=== PATIENT | male | born 1980 | race Caucasian/White ===

== ENCOUNTER 2023-07-05 13:51 | Outpatient (AMB) | payer OTHER, SELFPAY ==
--- NOTE | 2023-07-05 14:03 | A.OFFPC_ITS ---
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 Intake Note: Pt is here today as a New Patient to est care Allergies acetaminophen [From Tylenol] Adverse Reaction (Verified 07/05/23 14:17) vomting and nausea bupropion [From Wellbutrin] Adverse Reaction (Verified 07/05/23 14:17) nausea and itchy Medication List - Last Reconciled 07/05/23 by EMELIA Briggs amitriptyline 25 mg PO QHS amitriptyline 10 mg PO BEDTIME naltrexone 50 mg PO DAILY Tobacco use date assessed: 07/05/23 Dental Screening Dental Screen Date: 07/05/23 Did you have a dental visit in the last 12 months?: No Was dental information given to patient?: Patient has dentist HPI HPI Comments History of Present Illness Details Patient is a 43-year-old male in today to establish care. He has a past medical history significant for anxiety, insomnia, ETOH abuse, and hypertension. He does not want the influenza or COVID booster. He will send his medical records from his past provider. Patient has a chief complaint of right toe pain of his greater right toe. The pain has been present for 6 months but has gotten progressively worse over that time. He denies having any trauma to the area. He has used [id number] Motrin with some affect. Denies any tingling or numbness. Denies having pale or cold feet. Patient's blood pressure today is elevated at 144/92. He states that at his previous provider his blood pressure used to be elevated at 180 over 100, and that he has reduced his blood pressure by diet and weight loss. He measures his blood pressure at home frequently and states that he feels like he needs medication to help take him closer to the target goal of 120/80. Patient denies tingling, numbness, headache, chest pain, shortness a breath. [facility] Medical History (Updated 07/05/23 @ 15:04 by EMELIA Briggs) H/O ETOH abuse Insomnia Anxiety Family History Maternal Grandmother Type 2 diabetes mellitus Social History Housing: House Alcohol intake: current Comment: 1 to 2 beers per day Patient Tobacco Use Status: Current everyday Tobacco user Cigarettes Per Day: 10 Years Smoked: 10 e-Cigarette/Vaping Use: Currently Using Substance Use Type: Marijuana service: No Current occupational status: employed Cognitive needs: No Hearing needs: No Vision needs: No Questionnaire PHQ-9 Over the last 2 weeks, how often have you been bothered by any of the following problems? 1. Little interest or pleasure in doing things: not at all 2. Feeling down, depressed, or hopeless: not at all 3. Trouble falling or staying asleep, or sleeping too much: not at all 4. Feeling tired or having little energy: not at all 5. Poor appetite or overeating: not at all 6. Feeling bad about yourself - or that you are a failure or have let yourself or your family down: not at all 7. Trouble concentrating on things, such as reading the newspaper or watching television: not at all 8. Moving or speaking so slowly that other people could have noticed. Or the opposite - being so fidgety or restless that you have been moving around a lot more than usual: not at all 9. Thoughts that you would be better off or of hurting yourself in some way: not at all Total score: 0 Depression Screening Interpretation: Negative Depression Screening Done: Yes 89826 - PHQ-9 Billing: Yes Source: Developed by Drs. Harsha Wilder, Arianna Verde, Anibal William and colleagues, with an educational jacki from [employer]. Thrive Questionnaire Date Thrive assessed: 07/05/23 I am a: Patient What is your living situation today?: I have a steady place to live Within the past 12 months, did the food you bought not last and you didn't have the money to get more?: Never true Within the past 12 months, did you worry whether your food would run out before you got money to buy more?: Never true Do you have trouble paying for medicines?: No Do you have trouble getting transportation to medical appointments?: No Do you have trouble paying your heating and electricity bill?: No Do you have trouble taking care of your child, family member or friend?: No Do you have trouble with day-to-day activities such as bathing, preparing meals, shopping, managing finances, etc.?: No Are you currently unemployed and looking for a job?: No Are you interested in more education?: No THRIVE Score: 0 AUDIT C Alcohol Use Questionnaire (AUDIT-C) 1. How often do you have a drink containing alcohol?: 2-3 times a week 2. How many drinks containing alcohol do you have on a typical day when you are drinking?: 1 or 2 3. How often do you have six or more drinks on one occasion?: Never Total Score: 3 CANDICE-7 AMB Questionnaire CANDICE-7 Date CANDICE - 7 assessed: 07/05/23 Feeling nervous, anxious, or on edge: 0 = Not at all Not being able to stop or control worryin = Not at all Worrying too much about different things: 0 = Not at all Trouble relaxin = Not at all Being so restless that it is hard to sit still: 0 = Not at all Becoming easily annoyed or irritable: 0 = Not at all Feeling afraid as if something awful might happen: 0 = Not at all Total CANDICE-7 score (0-4 normal; 5-9 mild; 10-14 moderate; 15-21 severe): 0 Source: Developed by Drs. Harsha Wilder, Arianna Verde, Anibal William and colleagues, with an educational jacki from [employer]. CANDICE-7 Assessment Billing CANDICE-7 Assessment Tool: CANDICE-7 Assessment 39673 Review of Systems Const Details: Constitutional : No Weight loss, No Fever, No Chills, No Fatigue, No Malaise ENT/Mouth : No sore throat, No Rhinorrhea, No ear fullness. Eyes: No Eye Pain, No Swelling, No Redness, No change in vision. Cardiovascular : No Chest Pain, No SOB, No Dyspnea on Exertion, No Orthopnea, No Edema, No Palpitations Respiratory : No Cough, No Sputum, No Wheezing Gastrointestinal : No Nausea, No Vomiting, No Diarrhea, No Constipation, No abdominal Pain, No Hematochezia, No Melena Genitourinary : No Dysuria, No Urinary Frequency, No Hematuria, Musculoskeletal :Admits right great toe pain Skin : No Skin Lesions, No rash Neuro : No Weakness, No Numbness, No Dizziness, No Headache Psych : No Anxiety/Panic, No Depression Heme/Lymph: No Bruising, No Bleeding,No Lymphadenopathy Endocrine : No Polyuria, No Polydipsia All other systems reviewed and are negative Physical exam (Primary Care) Vital Signs: Last Vital Signs Pulse 100 07/05/23 14:05 BP 144/92 H 07/05/23 14:05 Pulse Ox 97 07/05/23 14:05 Oxygen Delivery Method Room Air 07/05/23 14:05 Care Plan Goal for BP management: Patient will be placed on 5 mg lisinopril and instructed to take blood pressure measurements at home Next steps: Follow-up in 1 month for blood pressure. BMI result Body Mass Index 27.4 Depression Screening Interpretation: Negative Const Other: Appearance: Alert.? Oriented X3.? No acute distress.? Head: Normocephalic, atraumatic, no step-offs or deformities Eyes: Pupils equal, round and reactive to light.?No photophobia. Neck: Normal inspection.? Neck supple.? CVS: Normal heart rate and rhythm.? Pulses normal.? Respiratory: No respiratory distress.? Breath sounds normal.? Skin: Skin warm and dry.? Normal skin color.? Normal skin turgor.? Extremities: No lower extremity edema. Edema of the 1st MP joint. Full ROM. Neuro: Oriented X 3.? No motor deficit.? No sensory deficit. CN 2-12 intact Results Reviewed Results Reviewed: Will call patient with x-ray and lab results. Assessment and Plan Assessment & Plan (1) Hypertension: Comment: Patient has been started on 5 mg lisinopril. He has been instructed about the side effects of this medication. He has been educated on signs of worsening symptoms and when to report back to the office or when to present to the emergency room. Patient will take blood pressure at home over the next 4 weeks. Patient has follow-up in 4 weeks. Code(s): I10 - Essential (primary) hypertension Qualifiers: Hypertension type: primary hypertension Qualified Code(s): I10 - Essential (primary) hypertension Plan: Follow-up in 4 weeks. (2) Pain of right great toe: Comment: Patient has edema, cracking and crepitus, of the MP joint of the right greater toe. Will order x-ray. Patient has been prescribed diclofenac topical gel to be used as directed. Will intervene based on x-ray results. Code(s): M79.674 - Pain in right toe(s) Plan: Patient has been instructed to utilize proper footwear. Patient has declined podiatry referral at this time. Plan Take your medications as prescribed. If you were prescribed antibiotics today, it is important that you take your medication to their entirety, do not skip any doses, do not finish them early. Follow-up with your primary care provider this week. Return to the emergency department with new or worsening symptoms. Such as fevers, chills, chest pain, shortness of breath, nausea, vomiting, dizziness, headache, vision changes, lethargy In case of emergency call 911 Orders: Orders XR foot RT 2V Today M79.674 - Pain in right toe(s) Comprehensive Met. Panel Today Z91.89 - Other specified personal risk factors, not elsewhere classified UA CC w/rflx Micro + Cult Today I10 - Essential (primary) hypertension Complete Blood Count Auto Diff Today Z13.0 - Encounter for screening for diseases of the blood and blood-forming organs and certain disorders involving the immune mechanism Lipid Panel Today Z13.220 - Encounter for screening for lipoid disorders Vitamin D 25-OH (D2 and D3) Today Z13.21 - Encounter for screening for nutritional disorder Vitamin B6 Today Z13.21 - Encounter for screening for nutritional disorder Vitamin B12 Today Z13.21 - Encounter for screening for nutritional disorder TSH reflex Free T4 Today Z13.29 - Encounter for screening for other suspected endocrine disorder Medications: New lisinopril 5 mg PO DAILY 90 tabs 0RF diclofenac sodium 1% (Arthritis Pain (diclofenac)) apply to single elbow, wrist or hand; for hand includes palm/fingers/back of hand 2 grams topical QID 100 grams 0RF Review Flu Vaccine not done: patient reason Coding Level of Care Code New Pt Level 4 (43917) Diagnoses Primary hypertension I10 Hypertension type: primary hypertension Pain of right great toe M79.674 Additional Codes CANDICE-7 Assessment Billing - CANDICE-7 Assessment Tool: CANDICE-7 Assessment 56944 ([id number]) Time Spent (min) 45
[2023-07-05 14:05] VITALS: BP 144/92; PULSE 100; O2SAT 97; BMI 27.4
== END 2023-07-05 16:55 | disposition home or self-care (01) ==
PROVIDERS: Visit Provider Nurse Practitioner Primary Care
DX: I10 Essential (primary) hypertension (principal); M79.674 Pain in right toe(s)
CPT/HCPCS: 99204

== ENCOUNTER 2023-07-05 14:46 | Outpatient (REF) | payer OTHER, SELFPAY ==
--- NOTE | ~2023-07-05 | XR_ITS ---
EXAMINATION: XR FOOT, RIGHT CLINICAL INFORMATION: Right toe pain. COMPARISON: None available. TECHNIQUE: AP, lateral, and oblique views of the right foot. FINDINGS: Bony alignment and mineralization are normal. No fracture, dislocation or right ankle joint effusion is seen. Boehler's angle is normal. There is marked osteoarthritic change of the first metatarsophalangeal joint. There is no abnormal bone erosion. No focal soft tissue swelling, gas or foreign body is seen. XR/XR foot RT 2V IMPRESSION: 1. No fracture, dislocation or right joint effusion is seen. 2. There is marked osteoarthritic change of the right first metatarsophalangeal joint.
== END 2023-07-05 14:47 | disposition home or self-care (01) ==
LOC: HO.HMGCX 14:46
PROVIDERS: PCP Nurse Practitioner Primary Care; Visit Provider Nurse Practitioner Primary Care
DX: M79.674 Pain in right toe(s) (principal)
CPT/HCPCS: 73620

== ENCOUNTER 2023-10-12 08:21 | Outpatient (AMB) | payer OTHER, SELFPAY ==
[2023-10-12 08:23] VITALS: BP 138/90; PULSE 102; O2SAT 98; BMI 27.5
--- NOTE | 2023-10-12 08:23 | A.OFFPC_ITS ---
Vital Signs 10/12/23 08:23 Height 5 ft 8 in Weight 181 lb BMI 27.5 BP 138/90 H Blood Pressure Location Rt brachial Position Sitting Pulse 102 H Pulse Source Pulse Oximeter Pulse Oximetry (%) 98 Oxygen Delivery Method Room Air Intake Visit Reasons: Yearly exam Intake Note: pt is here for annual exam Quantitative Strategy Analyst Required: No Accompanied by: Self / Same As Patient Allergies codeine Allergy (Intermediate, Verified 10/12/23 08:47) Itching acetaminophen [From Tylenol] Adverse Reaction (Verified 10/12/23 08:47) vomting and nausea bupropion [From Wellbutrin] Adverse Reaction (Verified 10/12/23 08:47) nausea and itchy Medication List - Last Reconciled 10/12/23 by EMELIA Briggs amitriptyline 25 mg PO QHS amitriptyline 10 mg PO BEDTIME diclofenac sodium 1% (Arthritis Pain (diclofenac)) 2 grams topical QID lisinopril 5 mg PO DAILY naltrexone 50 mg PO DAILY Tobacco use date assessed: 07/05/23 Dental Screening Dental Screen Date: 07/05/23 HPI HPI Comments History of Present Illness Details Patient is a 43-year-old male in today for follow-up for x-ray of right foot which demonstrated 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 Patient has been utilizing diclofenac sodium gel with good effect. Patient is declining podiatry or physical therapy at this time. Patient has been educated on exercises he can perform at home for the pain. The patient states that he recently ran out of his lisinopril, will provide refill up today. Patient has been instructed that he should to take blood pressure measurements at home. Patient has phobia of needles. Has been educated that needs to get labs performed for evaluation especially since he is taking medication at this time. Patient understands and will get labs as soon as he can. 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 39321 - PHQ-9 Billing: Patient declined-do not bill Source: Developed by Drs. Harsha Wilder, Anibal Wolfe and colleagues, with an educational jacki from [employer]. Thrive Questionnaire Date Thrive assessed: 07/05/23 CANDICE-7 AMB Questionnaire CANDICE-7 Date CANDICE - 7 assessed: 07/05/23 Source: Developed by Drs. Harsha Wilder, Arianna Verde, Anibal William and colleagues, with an educational jcaki from [employer]. CANDICE-7 Assessment Billing CANDICE-7 Assessment Tool: pt declined-do not bill Review of Systems Const All systems reviewed & are unremarkable except as noted in HPI and below Musc Denies numbness, Reports stiffness, Denies tingling and Reports other (Right toe pain) Neuro Denies numbness and Denies tingling Physical exam (Primary Care) Vital Signs: Last Vital Signs Pulse 102 H 10/12/23 08:23 BP 138/90 H 10/12/23 08:23 Pulse Ox 98 10/12/23 08:23 Oxygen Delivery Method Room Air 10/12/23 08:23 BMI result Body Mass Index 27.5 Tobacco/Smoking Status: Tobacco use Status Tobacco use date assessed 07/05/23 10/12/23 08:24 Patient Tobacco Use Status Former Tobacco user 10/12/23 08:38 e-Cigarette/Vaping Use Former Use 10/12/23 08:38 Thrive Assessment: Date of Thrive Assessment Date Thrive assessed 07/05/23 10/12/23 08:24 Assessment and Plan Assessment & Plan (1) Hypertension: Comment: Patient recently ran out of 5 mg lisinopril. Will refill. Patient has been educated to record values at home. Code(s): I10 - Essential (primary) hypertension Qualifiers: Hypertension type: primary hypertension Qualified Code(s): I10 - Essential (primary) hypertension (2) Pain of right great toe: Comment: Patient states the diclofenac gel had good effect. Recently ran out, will refill. Patient declining podiatry or PT at this time Code(s): M79.674 - Pain in right toe(s) Plan: Take your medications as prescribed. If you were prescribed antibiotics today, it is important that you take your medication to their entirety, do not skip any doses, do not finish them early. Return to the emergency department with new or worsening symptoms. Such as fevers, chills, chest pain, shortness of breath, nausea, vomiting, dizziness, headache, vision changes, lethargy In case of emergency call 911 Plan Patient needs to get labs Orders: Orders Drug Screen Urine Today Z02.83 - Encounter for blood-alcohol and blood-drug test Medications: Refilled lisinopril 5 mg PO DAILY 90 tabs 0RF diclofenac sodium 1% (Arthritis Pain (diclofenac)) apply to single elbow, wrist or hand; for hand includes palm/fingers/back of hand 2 grams topical QID 100 grams 0RF Coding Level of Care Code Est Pt Level 3 (61200) Diagnoses Primary hypertension I10 Hypertension type: primary hypertension Pain of right great toe M79.674 Time Spent (min) 25
== END 2023-10-12 10:39 | disposition home or self-care (01) ==
PROVIDERS: PCP Nurse Practitioner Primary Care; Visit Provider Nurse Practitioner Primary Care
DX: I10 Essential (primary) hypertension (principal); M79.674 Pain in right toe(s)
CPT/HCPCS: 99213